=== PATIENT | female | born 1990 | race African-American/Black ===

== ENCOUNTER 2016-03-07 17:14 | Emergency (ER) | payer MEDICARE ==
[2016-03-07] MEDS ORDERED: Ondansetron HCl/PF 4 MG/2 ML Vial ONE (18:07)
[2016-03-07] MEDS ORDERED: Famotidine 20 MG TAB ONE (18:07)
[2016-03-07] MEDS ORDERED: cefTRIAXone\\ROCEPHIN 1 GM VIAL ONE (18:07)
[2016-03-07] MEDS ORDERED: Famotidine In NaCl 20 mg/50 ml Premix Bag ONE (18:08)
[2016-03-07 18:11] LABS: Band 1 % (5-11); Hematocrit 40.3 % (36.0-47.0); Mean Platelet Volume 6.9 fL (7.4-10.4); Neutrophil 87 % (42-75); Red Blood Cell (RBC) Count 4.35 mill/uL (4.20-5.40); White Blood Cell (WBC) Count 20.1 thou/uL (4.8-10.8)
[2016-03-07 18:19] LABS: ALT (SGPT) 29 U/L (0-55); AST (SGOT) 23 U/L (5-34); Alkaline Phosphatase 68 U/L (40-150); Anion Gap 18 mmol/L (10-20); BUN (Urea Nitrogen) 12 mg/dL (7.0-18.7); Bilirubin, Total 0.8 mg/dL (0.2-1.2); Calc. Creatinine Clearance 0 mL/min (70-130); Calcium 9.6 mg/dL (7.8-10.44); Carbon Dioxide 23 mmol/L (22-29); Chloride 102 mmol/L (98-107); Estimated GFR-MDRD Greater than 90; Globulin 3.6 g/dL (2.4-3.5); Lipase 25 U/L (8-78); Protein, Total 8.1 g/dL (6.0-8.3)
[2016-03-07 18:52] LABS: Methamphetamine Not Detected (NotDetected)
[2016-03-07 18:53] LABS: Methadone Not Detected (NotDetected); Nitrite Negative (Negative)
[2016-03-07] MEDS ORDERED: Potassium Chloride 20 MEQ TAB ONE (18:53)
[2016-03-07 18:54] LABS: Glucose, Urine (Dipstick) Negative (Negative); Ketone, Urine 40 mg/dL (Negative); Protein, Urine (Dipstick) 30 mg/dL (Neg-Trace)
[2016-03-07 18:55] LABS: Bilirubin Negative (Negative); Blood, Urine Trace (Negative)
[2016-03-07 18:57] LABS: RBC/HPF None Seen HPF (0-3)
[2016-03-07 18:58] LABS: Bacteria/HPF 2+ HPF (None Seen); Hyaline Casts/LPF NONE SEEN LPF (0-3 Hyaline); Oval Fat Bodies/HPF None Seen HPF (None Seen); Renal Epithelial None Seen HPF (0-3); Sperm/HPF None Seen HPF (None Seen); Transitional Epithelial NONE SEEN HPF (0-3); Trichomonas/HPF None Seen HPF (None Seen); Yeast-All Forms None Seen HPF (None Seen)
--- NOTE | 2016-03-07 20:17 | ERRECORD ---
[facility] EMERGENCY RECORD HPI COUGH (17:42 JPIP) CHIEF COMPLAINT: Patient presents for evaluation of cough, non-productive. HISTORIAN: History provided by patient. LOCATION: No localizing symptoms. TIME COURSE: Sudden onset of symptoms, Date and time of onset was yesterday, There has been no change in the patient's symptoms over time, are constant. ASSOCIATED WITH: Associated with chills, No associated diarrhea, Associated with nausea, Associated with upper respiratory infection, vomiting all night long". EXACERBATED BY: Patient's condition exacerbated by nothing. RELIEVED BY: Patient's condition relieved by nothing, Patient's condition relieved by nothing because patient has not tried anything for relief. ROS (17:43 JPIP) CONSTITUTIONAL: Historian reports chills, reports fatigue, denies lethargy, reports malaise. EYES: Historian denies eye pain, denies eye redness. ENT: Historian denies dysphagia, denies sinus pain, denies sore throat. CARDIOVASCULAR: Historian denies chest pain. RESPIRATORY: Historian reports cough, denies shortness of breath, denies sputum, denies stridor, denies wheezing. GI: Historian denies diarrhea, reports hematemesis, reports nausea, reports vomiting. GENITOURINARY FEMALE: Historian denies dysuria, denies frequency, denies hematuria, denies , denies urgency. SKIN: Historian reports skin lesions, states she has an abscess in her left axilla. NEUROLOGIC: Historian denies dizziness, denies headache, denies lethargy, denies mental status changes. NOTES: All systems reviewed, negative except as described above. PAST MEDICAL HISTORY MEDICAL HISTORY: Flu vaccine not up to date, Tetanus not up to date, Pneumococcal vaccine not up to date, Notes: hx of depression and bipolar, Flu vaccine not up to date, Tetanus immunization up to date. No past medical history, Flu vaccine not up to date, Tetanus not up to date, Pneumococcal vaccine not up to date.03/07/16. (18:37 ERUI) FEMALE SURGICAL HISTORY: Surgical history of appendectomy, Patient has no surgical history. Surgical history of section.03/07/16. (18:37 ERUI) PSYCHIATRIC HISTORY: Psychiatric history includes, bipolar disorder, depression. No previous psychiatric history.03/07/16. (18:37 ERUI) SOCIAL HISTORY: Patient denies alcohol use, Patient currently uses drugs, abuses marijuana, Patient has no smoking history. (18:37 ERUI) &a-1R&a+25V*p+0X*f4827Z*c202B*c15G*c2P*p-0X&a-25V&a+1R Name: Mary Mcginnis : 1990 F26 MedRec: [id number] AcctNum: [id number] Prepared: Bear Mar 07, 2016 19:44 by Interface Page 1 of 4 pMD [facility] EMERGENCY RECORD FAMILY HISTORY: No known family hisotry. (18:37 ERUI) NOTES: Nursing records reviewed, Medication list reviewed. (17:47 JPIP) KNOWN ALLERGIES No Known Drug Allergies CURRENT MEDICATIONS LaMICtal: TABLET : Strength - 100 mg : ORAL Patient Dose: Unknown. (18:37 ERUI) Zoloft: TABLET : Strength - 50 mg : ORAL Patient Dose: 1 tab(s) Oral once a day. (18:38 ERUI) VITAL SIGNS VITAL SIGNS: BP: 134/89, Pulse: 135, Resp: 20, Temp: 99.7 (Oral), Pain: 5, O2 sat: 99 on Room Air, Time: 03/07/2016 17:30. (17:30 AHOO) BP: 124/101, Pulse: 109, Resp: 20, Pain: 5, O2 sat: 98 on Room Air, Time: 03/07/2016 18:30. (18:30 AHOO) BP: 152/89, Pulse: 120, Resp: 18 (Non-Labored), Temp: 99.1 (Oral), Pain: 0, O2 sat: 100 on Room Air, Time: 03/07/2016 19:22. (19:22 WJAN) PHYSICAL EXAM (17:44 JPIP) CONSTITUTIONAL: Vital Signs Reviewed, Patient afebrile, Pulse, tachycardic, Blood pressure normal, Respiratory rate normal, Normal pulse oximetry, Patient appears, in mild pain distress, Patient alert and oriented to person, place and time, Nursing notes reviewed, patient agitated, diaphoretic, +jerky movements. HEAD: Head exam included findings of head atraumatic, normocephalic. EYES: Eye exam included findings of eyelids normal to inspection, Conjunctiva normal, Sclera normal, no periorbital ecchymosis, no periorbital edema, no periorbital erythema. ENT: Ear exam normal, external ear normal, tympanic membranes normal, no foreign body, no drainage, no bleeding, Pharynx exam normal, not injected, no swelling, symmetrical, Uvula exam normal, midline, no edema, Mouth exam normal, mucous membranes moist. NECK: Neck exam included findings of normal range of motion, Trachea midline, no cervical adenopathy, no tenderness. RESPIRATORY CHEST: Respiratory exam included findings of no respiratory distress, Breath sounds clear, No wheezing, No rales, No rhonchi, Breath sounds not absent, Breath sounds not diminished. CARDIOVASCULAR: Cardiovascular exam included findings of, rate tachycardic, rhythm regular, Heart sounds normal, no murmurs, no rub. ABDOMEN FEMALE: Abdominal exam included findings of abdomen tender, to the epigastric region, mild intensity, Bowel sounds, hypoactive, Liver &a-1R&a+25V*p+0X*p6195I*c202B*c15G*c2P*p-0X&a-25V&a+1R Name: Mary Mcginnis : 1990 F26 MedRec: [id number] AcctNum: [id number] Prepared: Bear Mar 07, 2016 19:44 by Interface Page 2 of 4 pMD [facility] EMERGENCY RECORD normal, Spleen normal, no distension, no mass, no pulsatile masses, no peritoneal signs, no rigidity, no guarding, no rebound. BACK: no costovertebral angle tenderness. UPPER EXTREMITY: Upper extremity exam included findings of inspection abnormal, Range of motion normal, open draining abscess in left axilla. large purulent DC. NEURO: Vidor coma scale 15, Neuro exam findings include patient oriented to person, place and time, Speech, pressured, no focal motor deficits. SKIN: Skin exam included findings of skin warm, dry, and normal in color, open draining abscess in left axilla. LYMPHATIC: Lymphatic exam included findings of cervical nodes normal, Submandibular normal. PSYCHIATRIC: Psychiatric exam included findings of patient oriented to person place and time, Affect, agitated, anxious. MEDICATION ADMINISTRATION SUMMARY Drug Name: K-Dur, Dose Ordered: 40 mEq, Route: Oral, Status: Given, Time: 18:55 03/07/2016, Drug Name: Rocephin injection, Dose Ordered: 2 g, Route: IV Piggy Back, Status: Given, Time: 18:47 03/07/2016, Drug Name: famotidine (PF)-NaCl (iso-os), Dose Ordered: 20 mg, Route: IV Piggy Back, Status: Given, Time: 18:11 03/07/2016, Drug Name: Zofran intravenous, Dose Ordered: 4 mg, Route: IV Push, Status: Given, Time: 18:09 03/07/2016, Drug Name: Normal Saline, Dose Ordered: 1000 mL/hr, Route: IV Fluid Infusion, Status: Given, Time: 18:07 03/07/2016, Detailed record available in Medication Service section. DOCTOR NOTES RE-EVALUATION: Routine re-evaluation, after administration of analgesics, Routine re-evaluation, after administration of IV fluids, The patient's condition has improved. (19:06 JPIP) TEXT: Patient has had no emesis in since arrival in the ED. Cough is less than it was when she first arrived. (18:33 JPIP) Leukocytosis most likely due to three issues, her cutaneous abscess, her UTI and URI. (19:06 JPIP) advised to follow up with her PCP for evaluation and treatment of her HTN. (19:10 JPIP) PROBLEM LIST No recorded problems DIAGNOSIS (19:09 JPIP) FINAL: PRIMARY: Nausea with vomiting, ADDITIONAL: axillary abscess, Hypokalemia, upper respiratory infection, UTI. &a-1R&a+25V*p+0X*z6868Z*c202B*c15G*c2P*p-0X&a-25V&a+1R Name: Mary Mcginnis : 1990 F26 MedRec: [id number] AcctNum: [id number] Prepared: Bear Mar 07, 2016 19:44 by Interface Page 3 of 4 pMD [facility] EMERGENCY RECORD PRESCRIPTION promethazine-DM: SYRUP : : ORAL : Quantity: 5 Unit: mL Route: ORAL Schedule: every 8 hours PRN Dispense: 120 ml May substitute. Refills: No Refills . (18:51 JPIP) NOTES: for cough No refills. (18:51 JPIP) Zofran ODT: TABLET, RAPID DISSOLVE : 4 mg : ORAL : Quantity: 1 Unit: tab(s) Route: ORAL Schedule: every 6 hours PRN Dispense: 10 May substitute. Refills: No Refills . (18:51 JPIP) NOTES: for nausea No refills. (18:51 JPIP) Septra DS: TABLET : 800 mg-160 mg : ORAL : Quantity: 1 Unit: tab(s) Route: ORAL Schedule: 2 times a day Dispense: 20 May substitute. Refills: No Refills . (19:03 JPIP) NOTES: No refills. (19:03 JPIP) DISPOSITION PATIENT: Disposition Type: Discharge, Disposition: *Discharge Home, Condition: Good. (19:09 JPIP) Patient left the department. (19:35 WJAN) Barnett: AHOO=SUSY Louie, May ERUI=DONNIE Swan, Yamila JPIP=DO Ro Joseph WMAXX=DONNIE [place], Shea &a-1R&a+25V*p+0X*y1204J*c202B*c15G*c2P*p-0X&a-25V&a+1R Name: Mary Mcginnis : 1990 F26 MedRec: [id number] AcctNum: [id number] Prepared: Bear Mar 07, 2016 19:44 by Interface Page 4 of 4 pMD MTDD
--- NOTE | 2016-03-07 20:28 | PICIS ---
[facility] EMERGENCY RECORD TRIAGE (17:29 ERUI) TRIAGE NOTES: C/O OF COUGHING, VOMITING BLOOD, HEART RACING S/S ONSET LAST NIGHT. (17:29 ERUI) PATIENT: NAME: Mary Mcginnis, AGE: 26, GENDER: female, : Sat 1990, TIME OF GREET: Tue Mar 07, 2016 17:14, PREFERRED LANGUAGE: Andorran, ETHNICITY: Not or , ECODE BILLING MAP: [facility], SSN: [id number], Zip Code: [address], KG WEIGHT: 77.11, PHONE: , , , PERSON ID: [id number], PAYMENT: [employer] Medicare, PCP: NONE. (17:29 ERUI) COMPLAINT: COUGH, VOMITING. (17:29 ERUI) ADMISSION: URGENCY: 3 Urgent, ADMISSION SOURCE: Home, TRANSPORT: Ambulance- [facility], BED: TRIAGE. (17:29 ERUI) SIRS SCORING: Heart Rate 55-109 (0), respiratory rate 12-24 (0), Mental Status altered: no (0). (18:37 ERUI) TRIAGE SCREENING: Patient denies suicidal ideation, Patient denies presence of domestic violence. (18:37 ERUI) LMP: Last menstrual period: 02/12/2016. (18:37 ERUI) TREATMENTS IN PROGRESS: Treatments given Prehospital: none. (18:37 ERUI) PROVIDERS: TRIAGE NURSE: Yamila Swan RN. (17:29 ERUI) PREVIOUS VISIT ALLERGIES: No Known Drug Allergies. (17:29 ERUI) No Known Drug Allergies. (18:37 ERUI) KNOWN ALLERGIES No Known Drug Allergies CURRENT MEDICATIONS LaMICtal: TABLET : Strength - 100 mg : ORAL Patient Dose: Unknown. (18:37 ERUI) Zoloft: TABLET : Strength - 50 mg : ORAL Patient Dose: 1 tab(s) Oral once a day. (18:38 ERUI) VITAL SIGNS VITAL SIGNS: BP: 134/89, Pulse: 135, Resp: 20, Temp: 99.7 (Oral), Pain: 5, O2 sat: 99 on Room Air, Time: 03/07/2016 17:30. (17:30 AHOO) BP: 124/101, Pulse: 109, Resp: 20, Pain: 5, O2 sat: 98 on Room Air, Time: 03/07/2016 18:30. (18:30 AHOO) BP: 152/89, Pulse: 120, Resp: 18 (Non-Labored), Temp: 99.1 (Oral), Pain: 0, O2 sat: 100 on Room Air, Time: 03/07/2016 19:22. (19:22 WJAN) NURSING ASSESSMENT: ABDOMEN (18:38 ERUI) CONSTITUTIONAL: Patient arrives ambulatory, Gait steady, History obtained from patient, Patient appears comfortable, Patient cooperative, Patient alert, Oriented to person, place and time, Skin warm, Skin dry, Patient complains of vomiting blood. PAIN: Patient rates pain as 0 out of 10. ABDOMEN: Abdomen assessment findings include abdomen symmetrical, &a-1R&a+25V*p+0X*j7264J*c202B*c15G*c2P*p-0X&a-25V&a+1R Name: Mary Mcginnis : 1990 F26 MedRec: [id number] AcctNum: [id number] Prepared: Bear Mar 07, 2016 19:50 by Interface Page 1 of 13 pMD [facility] EMERGENCY RECORD Abdomen soft, non-tender, Associated with vomiting, history of vomiting, having coffee ground emesis, states vomits when she coughs, no associated diarrhea, no associated constipation, Date of last bowel movement: today. GENITOURINARY FEMALE: no associated urinary complaints. SAFETY: Side rails up, Cart/Stretcher in lowest position, Call light within reach, Hospital ID band on. NURSING PROCEDURE: DISCHARGE NOTE (19:23 WJAN) DISCHARGE: Patient discharged to home, ambulating without assistance, driving self, unaccompanied, Summary of Care printed/ provided, Patient requested and was provided an electronic copy of Discharge Instructions, Transition record given to patient, Discharge instructions given to patient, Simple or moderate discharge teaching performed, by Shea RN, Prescriptions given and instructions on side effects given, Medication reconciliation form given, Above person(s) verbalized understanding of discharge instructions and follow-up care, Notes: Patient instructed to follow up with PCP. Patient instructed to follow medication instructions. Patient instructed to follow discharge teaching. BELONGINGS: Belongings remain with patient, Valuables remain with patient. SAFETY: Side rails up, Cart/Stretcher in lowest position, Call light within reach, Hospital ID band on. NURSING PROCEDURE: IV PATIENT IDENITIFIER: Patient actively involved in identification process, Patient's identity verified by patient stating name, Patient's identity verified by patient stating date, Patient's identity verified by hospital ID bracelet. (17:49 AHOO) IV SITE 1: IV therapy indicated for medication administration, IV established, to the left antecubital, using a 20 gauge catheter, in one attempt, Saline lock established, Flushed with normal saline (mls): 10ML, Labs drawn at time of placement, labeled in the presence of the patient and sent to lab. (17:49 AHOO) FOLLOW-UP SITE 1: After procedure, 2x2 dressing applied, IV discontinued, due to patient being discharged, catheter intact, Notes: IV DC'd, bleeding controlled with 2x2 and paper tape. (19:20 WJAN) ORDER DETAILS Order Name: CBC with Differential, Status: Active, Time: 17:33 03/07/2016, User: LEENA, - Ordered for: DO Ro Joseph, - Entered by: DO Ro Joseph - Bear Mar 07, 2016 17:33, - Quantity: 1, Order Name: Comprehensive Metabolic Panel, Status: Active, Time: 17:33 03/07/2016, User: LEENA, - Ordered for: DO Ro Joseph, &a-1R&a+25V*p+0X*b7131D*c202B*c15G*c2P*p-0X&a-25V&a+1R Name: Mary Mcginnis : 1990 F26 MedRec: [id number] AcctNum: [id number] Prepared: SunMar 07, 2016 19:50 by Interface Page 2 of 13 D [facility] EMERGENCY RECORD - Entered by: DO oR Joseph - Bear Mar 07, 2016 17:33, - Quantity: 1, Order Name: Culture, Urine, Status: Active, Time: 19:03 03/07/2016, User: LEENA, - Ordered for: DO Ro Joseph, - Entered by: DO Ro Joseph - Tue Mar 07, 2016 19:03, - Quantity: 1, Order Name: Drug Screen, Urine, Status: Active, Time: 17:35 03/07/2016, User: LEENA, - Ordered for: DO Ro Joseph, - Entered by: DO Ro Joseph - Tue Mar 07, 2016 17:35, - Quantity: 1, Order Name: Lipase, Status: Active, Time: 17:33 03/07/2016, User: LEENA, - Ordered for: DO Ro Joseph, - Entered by: DO Ro Joseph - Tue Mar 07, 2016 17:33, - Quantity: 1, Order Name: Test, Serum (BHCG), Status: Active, Time: 17:33 03/07/2016, User: LEENA, - Ordered for: DO Ro Joseph, - Entered by: DO Ro Joseph - Tue Mar 07, 2016 17:33, - Quantity: 1, Order Name: SALINE LOCK, Status: Done, Time: 17:49 03/07/2016, User: CHRISTINE, - Ordered for: DO Ro Joseph, - Entered by: DO Ro Joseph - Tue Mar 07, 2016 17:34, - Quantity: 1, Order Name: Urinalysis w/ Rflx Microscopic, Status: Active, Time: 17:33 03/07/2016, User: LEENA, - Ordered for: DO Ro Joseph, - Entered by: DO Ro Joseph - Tue Mar 07, 2016 17:33, - Quantity: 1. MEDICATION ADMINISTRATION SUMMARY Drug Name: K-Dur, Dose Ordered: 40 mEq, Route: Oral, Status: Given, Time: 18:55 03/07/2016, Drug Name: Rocephin injection, Dose Ordered: 2 g, Route: IV Piggy Back, Status: Given, Time: 18:47 03/07/2016, Drug Name: famotidine (PF)-NaCl (iso-os), Dose Ordered: 20 mg, Route: IV Piggy Back, Status: Given, Time: 18:11 03/07/2016, Drug Name: Zofran intravenous, Dose Ordered: 4 mg, Route: IV Push, Status: Given, Time: 18:09 03/07/2016, Drug Name: Normal Saline, Dose Ordered: 1000 mL/hr, Route: IV Fluid Infusion, Status: Given, Time: 18:07 03/07/2016, Detailed record available in Medication Service section. MEDICATION SERVICE famotidine (PF)-NaCl (iso-os): Order: famotidine (PF)-NaCl (iso-os) (famotidine/sodium chloride, iso-osmotic/preservative free) &a-1R&a+25V*p+0X*v5309N*c202B*c15G*c2P*p-0X&a-25V&a+1R Name: Mary Mcginnis : 1990 F26 MedRec: [id number] AcctNum: [id number] Prepared: SunMar 07, 2016 19:50 by Interface Page 3 of 13 pMD [facility] EMERGENCY RECORD - Dose: 20 mg : IV Piggy Back Schedule: Now Ordered by: Hernandez Ro DO Entered by: Hernandez Ro DO SunMar 07, 2016 17:34 , Acknowledged by: Rachael Louie LVN SunMar 07, 2016 18:04 Documented as given by: Rachael Louie LVN SunMar 07, 2016 18:11 Patient, Medication, Dose, Route and Time verified prior to administration. Amount given: 20MG, IV SITE #1 IVPB or drip, Catheter placement confirmed via flush prior to administration, IV site without signs or symptoms of infiltration during medication administration, No swelling during administration, No drainage during administration, IV flushed after administration, Correct patient, time, route, dose and medication confirmed prior to administration, Patient advised of actions and side-effects prior to administration, Allergies confirmed and medications reviewed prior to administration, Patient in position of comfort, Side rails up, Cart in lowest position, Family at bedside. : Follow Up : Response assessment performed, No signs or symptoms of allergic reaction noted, _IV SITE #1:_, Medication infusion discontinued, on SunMar 07, 2016 19:00, 50 minutes, ., Total amount infused: 20MG. (19:20 ERUI) K-Dur: Order: K-Dur (potassium chloride) - Dose: 40 mEq : Oral Schedule: Now Ordered by: Hernandez Ro DO Entered by: Hernandez Ro DO SunMar 07, 2016 18:43 , Acknowledged by: Justino Perdue RN SunMar 07, 2016 18:55 Documented as given by: Justino Perdue RN SunMar 07, 2016 18:55 Patient, Medication, Dose, Route and Time verified prior to administration. Amount given: 40 mEq, Site: Medication administered P.O., Patient appears Awake and alert- acceptable, Correct patient, time, route, dose and medication confirmed prior to administration, Patient advised of actions and side-effects prior to administration, Allergies confirmed and medications reviewed prior to administration, Patient in position of comfort, Side rails up, Cart in lowest position, Family at bedside. : Follow Up : Response assessment performed, No signs or symptoms of allergic reaction noted. (19:29 ERUI) Normal Saline: Order: Normal Saline (0.9 % sodium chloride) - Dose: 1000 mL/hr : IV Fluid Infusion Schedule: Now Ordered by: Hernandez Ro DO Entered by: Hernandez Ro DO Mar 07, 2016 17:34 , Acknowledged by: Rachael Louie LVN tyrone Mar 07, 2016 18:04 Documented as given by: Rachael Louie LVN tyrone Mar 07, 2016 18:07 Patient, Medication, Dose, Route and Time verified prior to administration. Amount given: 1 L, IV SITE #1 IV fluids established for hydration, &a-1R&a+25V*p+0X*f1626Y*c202B*c15G*c2P*p-0X&a-25V&a+1R Name: Mary Mcginnis : 1990 F26 MedRec: [id number] AcctNum: [id number] Prepared: SunMar 07, 2016 19:50 by Interface Page 4 of 13 pMD [facility] EMERGENCY RECORD IV SITE #1 into left antecubital, IV SITE #1 1st bag hung, IV SITE #1 bolus of 1000 ml established, via gravity tubing, Awake and alert- acceptable, Catheter placement confirmed via flush prior to administration, IV site without signs or symptoms of infiltration during medication administration, No swelling during administration, No drainage during administration, IV flushed after administration, Correct patient, time, route, dose and medication confirmed prior to administration, Patient advised of actions and side-effects prior to administration, Allergies confirmed and medications reviewed prior to administration, Patient in position of comfort, Side rails up, Cart in lowest position, Family at bedside. : Follow Up : Response assessment performed, No signs or symptoms of allergic reaction noted, _IV SITE #1:_, Medication infusion discontinued, on SunMar 07, 2016 19:29, Total infusion time IV site 1 1 hour, 25 minutes, ., Total amount infused: 1000ML. (19:20 ERUI) Rocephin injection: Order: Rocephin injection (ceftriaxone sodium) - Dose: 2 g : IV Piggy Back Schedule: Now Ordered by: Hernandez Ro DO Entered by: Hernandez Ro DO SunMar 07, 2016 17:35 , Acknowledged by: Rachael Louie LVN SunMar 07, 2016 18:04. : Follow Up : Response assessment performed, No signs or symptoms of allergic reaction noted, _IV SITE #1:_, Medication infusion discontinued, on SunMar 07, 2016 19:20, 35 minutes, ., Total amount infused: 100ML. (19:29 ERUI) Rocephin injection: Order: Rocephin injection (ceftriaxone sodium) - Dose: 2 g : IV Piggy Back Schedule: Now Ordered by: Hernandez Ro DO Entered by: Hernandez Ro DO SunMar 07, 2016 17:35 , Acknowledged by: Rachael Louie LVN SunMar 07, 2016 18:04 Documented as given by: Yamila Swan RN SunMar 07, 2016 18:47 Patient, Medication, Dose, Route and Time verified prior to administration. Amount given: 2grams, IV SITE #1 IVPB or drip, initial infusion, IVPB mixed in: 100ml, Fluid: 0.9NS, via primary tubing, via pump tubing, on an IV pump, Catheter placement confirmed via flush prior to administration, IV site without signs or symptoms of infiltration during medication administration, No swelling during administration, No drainage during administration, IV flushed after administration, Correct patient, time, route, dose and medication confirmed prior to administration, Patient advised of actions and side-effects prior to administration, Allergies confirmed and medications reviewed prior to administration, Patient in position of comfort, Side rails up, Cart in lowest position. Zofran intravenous: Order: Zofran intravenous (ondansetron HCl) - Dose: 4 mg : IV Push Schedule: Now Ordered by: Hernandez Ro DO &a-1R&a+25V*p+0X*t1054M*c202B*c15G*c2P*p-0X&a-25V&a+1R Name: Mary Mcginnis : 1990 F26 MedRec: [id number] AcctNum: [id number] Prepared: SunMar 07, 2016 19:50 by Interface Page 5 of 13 pMD [facility] EMERGENCY RECORD Entered by: Hernandez Ro DO SunMar 07, 2016 17:34 , Acknowledged by: Rachael Louie LVN SunMar 07, 2016 18:04 Documented as given by: Rachael Louie LVN SunMar 07, 2016 18:09 Patient, Medication, Dose, Route and Time verified prior to administration. Amount given: 4 MG, IV SITE #1 IVP, initial medication, Slowly, Awake and alert- acceptable, Catheter placement confirmed via flush prior to administration, IV site without signs or symptoms of infiltration during medication administration, No swelling during administration, No drainage during administration, IV flushed after administration, Correct patient, time, route, dose and medication confirmed prior to administration, Patient advised of actions and side-effects prior to administration, Allergies confirmed and medications reviewed prior to administration, Patient in position of comfort, Side rails up, Cart in lowest position, Family at bedside. : Follow Up : Response assessment performed, No signs or symptoms of allergic reaction noted, _IV SITE #1:_. (19:20 ERUI) HPI COUGH (17:42 JPIP) CHIEF COMPLAINT: Patient presents for evaluation of cough, non-productive. HISTORIAN: History provided by patient. LOCATION: No localizing symptoms. TIME COURSE: Sudden onset of symptoms, Date and time of onset was yesterday, There has been no change in the patient's symptoms over time, are constant. ASSOCIATED WITH: Associated with chills, No associated diarrhea, Associated with nausea, Associated with upper respiratory infection, vomiting all night long". EXACERBATED BY: Patient's condition exacerbated by nothing. RELIEVED BY: Patient's condition relieved by nothing, Patient's condition relieved by nothing because patient has not tried anything for relief. ROS (17:43 JPIP) CONSTITUTIONAL: Historian reports chills, reports fatigue, denies lethargy, reports malaise. EYES: Historian denies eye pain, denies eye redness. ENT: Historian denies dysphagia, denies sinus pain, denies sore throat. CARDIOVASCULAR: Historian denies chest pain. RESPIRATORY: Historian reports cough, denies shortness of breath, denies sputum, denies stridor, denies wheezing. GI: Historian denies diarrhea, reports hematemesis, reports nausea, reports vomiting. GENITOURINARY FEMALE: Historian denies dysuria, denies frequency, denies hematuria, denies , denies urgency. SKIN: Historian reports skin lesions, states she has an abscess in her left axilla. NEUROLOGIC: Historian denies dizziness, denies headache, denies lethargy, denies mental status changes. &a-1R&a+25V*p+0X*b3297L*c202B*c15G*c2P*p-0X&a-25V&a+1R Name: Mary Mcginnis : 1990 F26 MedRec: [id number] AcctNum: [id number] Prepared: Bear Mar 07, 2016 19:50 by Interface Page 6 of 13 pMD [facility] EMERGENCY RECORD NOTES: All systems reviewed, negative except as described above. PAST MEDICAL HISTORY MEDICAL HISTORY: Flu vaccine not up to date, Tetanus not up to date, Pneumococcal vaccine not up to date, Notes: hx of depression and bipolar, Flu vaccine not up to date, Tetanus immunization up to date. No past medical history, Flu vaccine not up to date, Tetanus not up to date, Pneumococcal vaccine not up to date.03/07/16. (18:37 ERUI) FEMALE SURGICAL HISTORY: Surgical history of appendectomy, Patient has no surgical history. Surgical history of section.03/07/16. (18:37 ERUI) PSYCHIATRIC HISTORY: Psychiatric history includes, bipolar disorder, depression. No previous psychiatric history.03/07/16. (18:37 ERUI) SOCIAL HISTORY: Patient denies alcohol use, Patient currently uses drugs, abuses marijuana, Patient has no smoking history. (18:37 ERUI) FAMILY HISTORY: No known family hisotry. (18:37 ERUI) NOTES: Nursing records reviewed, Medication list reviewed. (17:47 JPIP) PHYSICAL EXAM (17:44 JPIP) CONSTITUTIONAL: Vital Signs Reviewed, Patient afebrile, Pulse, tachycardic, Blood pressure normal, Respiratory rate normal, Normal pulse oximetry, Patient appears, in mild pain distress, Patient alert and oriented to person, place and time, Nursing notes reviewed, patient agitated, diaphoretic, +jerky movements. HEAD: Head exam included findings of head atraumatic, normocephalic. EYES: Eye exam included findings of eyelids normal to inspection, Conjunctiva normal, Sclera normal, no periorbital ecchymosis, no periorbital edema, no periorbital erythema. ENT: Ear exam normal, external ear normal, tympanic membranes normal, no foreign body, no drainage, no bleeding, Pharynx exam normal, not injected, no swelling, symmetrical, Uvula exam normal, midline, no edema, Mouth exam normal, mucous membranes moist. NECK: Neck exam included findings of normal range of motion, Trachea midline, no cervical adenopathy, no tenderness. RESPIRATORY CHEST: Respiratory exam included findings of no respiratory distress, Breath sounds clear, No wheezing, No rales, No rhonchi, Breath sounds not absent, Breath sounds not diminished. CARDIOVASCULAR: Cardiovascular exam included findings of, rate tachycardic, rhythm regular, Heart sounds normal, no murmurs, no rub. ABDOMEN FEMALE: Abdominal exam included findings of abdomen tender, to the epigastric region, mild intensity, Bowel sounds, hypoactive, Liver normal, Spleen normal, no distension, no mass, no pulsatile masses, &a-1R&a+25V*p+0X*e2884X*c202B*c15G*c2P*p-0X&a-25V&a+1R Name: Mary Mcginnis : 1990 F26 MedRec: [id number] AcctNum: [id number] Prepared: Bear Mar 07, 2016 19:50 by Interface Page 7 of 13 pMD [facility] EMERGENCY RECORD no peritoneal signs, no rigidity, no guarding, no rebound. BACK: no costovertebral angle tenderness. UPPER EXTREMITY: Upper extremity exam included findings of inspection abnormal, Range of motion normal, open draining abscess in left axilla. large purulent DC. NEURO: West coma scale 15, Neuro exam findings include patient oriented to person, place and time, Speech, pressured, no focal motor deficits. SKIN: Skin exam included findings of skin warm, dry, and normal in color, open draining abscess in left axilla. LYMPHATIC: Lymphatic exam included findings of cervical nodes normal, Submandibular normal. PSYCHIATRIC: Psychiatric exam included findings of patient oriented to person place and time, Affect, agitated, anxious. LAB INTERPRETATION (19:05 JPIP) INTERPRETATION: I reviewed the lab results, All labs normal except as noted below, CBC abnormal, White blood cell count elevated, Neutrophils elevated, Chemistry abnormal, Potassium decreased, Glucose elevated, Liver functions normal, Lipase normal, Urinalysis abnormal, positive for leukocytes, positive for bacteria, positive for ketones, Urine HCG negative. EVENTS TRANSFER: Triage to Emergency Triage. (SunMar 07, 2016 17:29 ERUI) Emergency Triage to Emergency Room -03. (17:32 AHOO) Emergency Emergency Room -03 to Waiting. (19:29 JPIP) Removed from Emergency Waiting. (19:35 WJAN) O2SAT INTERPRETATION (17:35 JPIP) O2SAT: Continuous pulse oximetry, Oxygen saturation 99%, on room air, Oxygen saturation interpretation: Normal, No intervention required. DOCTOR NOTES RE-EVALUATION: Routine re-evaluation, after administration of analgesics, Routine re-evaluation, after administration of IV fluids, The patient's condition has improved. (19:06 JPIP) TEXT: Patient has had no emesis in since arrival in the ED. Cough is less than it was when she first arrived. (18:33 JPIP) Leukocytosis most likely due to three issues, her cutaneous abscess, her UTI and URI. (19:06 JPIP) advised to follow up with her PCP for evaluation and treatment of her HTN. (19:10 JPIP) PROBLEM LIST No recorded problems &a-1R&a+25V*p+0X*q8905Z*c202B*c15G*c2P*p-0X&a-25V&a+1R Name: Mary Mcginnis : 1990 F26 MedRec: [id number] AcctNum: [id number] Prepared: SunMar 07, 2016 19:50 by Interface Page 8 of 13 pMD [facility] EMERGENCY RECORD DIAGNOSIS (19:09 JPIP) FINAL: PRIMARY: Nausea with vomiting, ADDITIONAL: axillary abscess, Hypokalemia, upper respiratory infection, UTI. DISPOSITION PATIENT: Disposition Type: Discharge, Disposition: *Discharge Home, Condition: Good. (19:09 JPIP) Patient left the department. (19:35 WJAN) INSTRUCTION (19:08 JPIP) DISCHARGE: ABSCESS, ABX ONLY, UPPER RESP INFECTION ANTIBIOTIC TREATMENT ADULT, UTI CYSTITIS FEMALE ADULT, NAUSEA VOMITING 6YADULT. SPECIAL: Finish all your antibiotics Follow up with Primary Care Physician within 72 hours Return to the Emergency Department for increased symptoms problems or concerns Take acetaminophen or ibuprofen for pain. PRESCRIPTION promethazine-DM: SYRUP : : ORAL : Quantity: 5 Unit: mL Route: ORAL Schedule: every 8 hours PRN Dispense: 120 ml May substitute. Refills: No Refills . (18:51 JPIP) NOTES: for cough No refills. (18:51 JPIP) Zofran ODT: TABLET, RAPID DISSOLVE : 4 mg : ORAL : Quantity: 1 Unit: tab(s) Route: ORAL Schedule: every 6 hours PRN Dispense: 10 May substitute. Refills: No Refills . (18:51 JPIP) NOTES: for nausea No refills. (18:51 JPIP) Septra DS: TABLET : 800 mg-160 mg : ORAL : Quantity: 1 Unit: tab(s) Route: ORAL Schedule: 2 times a day Dispense: 20 May substitute. Refills: No Refills . (19:03 JPIP) NOTES: No refills. (19:03 JPIP) IMAGING (19:37 WJAN) *SUPPLY CHARGE SHEET: Image captured from scanner. *DISCHARGE INSTRUCTIONS RECEIPT: Image captured from scanner. RESULTS LABORATORY: CBC with Differential Collection DT: SunMar 07, 2016 17:50, *White Blood Cell (WBC) Count 20.1 - H thou/uL, Range (4.8-10.8), Red Blood Cell (RBC) Count 4.35 mill/uL, Range (4.20-5.40), Hemoglobin 13.2 g/dL, Range (12.0-16.0), Hematocrit 40.3 %, Range (36.0-47.0), Mean Corpuscular Volume 92.6 fl, Range (81.0-99.0), &a-1R&a+25V*p+0X*q1787Q*c202B*c15G*c2P*p-0X&a-25V&a+1R Name: Mary Mcginnis : 1990 F26 MedRec: [id number] AcctNum: [id number] Prepared: SunMar 07, 2016 19:50 by Interface Page 9 of 13 pMD [facility] EMERGENCY RECORD Mean Corpuscular Hemoglobin 30.3 pg, Range (27.0-31.0), Mean Corpuscular HGB CONC 32.7 g/dL, Range (32.0-36.0), RBC Distribution Width 11.8 %, Range (11.5-14.5), Platelet Count 371 thou/uL, Range (130-400), *Mean Platelet Volume 6.9 - L fL, Range (7.4-10.4), *Neutrophil 87 - H %, Range (42-75), *Band 1 - L %, Range (5-11), *Lymphocytes 8 - L %, Range (21-51), Monocytes 3 %, Range (0-10), Eosinophils 1 %, Range (0-10), Small Platelets SLIGHT . (18:12 JPIP) Test, Serum (BHCG) Collection DT: SunMar 07, 2016 17:50, BHCG - Serum NEGATIVE , Range (NEGATIVE), Method of sensitivity- Indeterminant: results should be repeated, after 48 hours. Positive: results may be detected as early as 4-5 days before a first missed menses. Elimination of BHCG-, Elimination following first trimester D&C: 29-44 Days , Elimination following term : 8-24 Days . (18:12 JPIP) Lipase Collection DT: SunMar 07, 2016 17:50, Lipase 25 U/L, Range (8-78). (18:25 JPIP) Comprehensive Metabolic Panel Collection DT: SunMar 07, 2016 17:50, Sodium 140 mmol/L, Range (136-145), Chloride 102 mmol/L, Range (98-107), Carbon Dioxide 23 mmol/L, Range (22-29), Anion Gap 18 mmol/L, Range (10-20), BUN (Urea Nitrogen) 12 mg/dL, Range (7.0-18.7), Creatinine 0.86 mg/dL, Range (0.6-1.1), Estimated GFR-MDRD Greater than 90 , Reference Range for Estimated GFR: Greater than 90, mL/min/1.73 m2 NOTE: The MDRD equation has not been validated for use, with the elderly (over 70 years of age), women, patients with, serious comorbid condition or persons with extremes of body size, muscle, mass, or nutritional status. , *Glucose 127 - H mg/dL, Range (70-105), Calcium 9.6 mg/dL, Range (7.8-10.44), Bilirubin, Total 0.8 mg/dL, Range (0.2-1.2), Protein, Total 8.1 g/dL, Range (6.0-8.3), NOTE: Plasma values are generally 0.3 to 0.5 g/dL higher than serum values, due to the presence of fibrinogen. , Albumin 4.5 g/dL, Range (3.5-5.0), *Globulin 3.6 - H g/dL, Range (2.4-3.5), Alb/Glob Ratio 1.3 g/dL, Range (1.2-2.2), Alkaline Phosphatase 68 U/L, Range (40-150), &a-1R&a+25V*p+0X*l6930N*c202B*c15G*c2P*p-0X&a-25V&a+1R Name: Mary Mcginnis : 1990 F26 MedRec: [id number] AcctNum: [id number] Prepared: Bear Mar 07, 2016 19:50 by Interface Page 10 of 13 pMD [facility]GENCY RECORD AST (SGOT) 23 U/L, Range (5-34), ALT (SGPT) 29 U/L, Range (0-55). (18:25 JPIP) Lipase Collection DT: SunMar 07, 2016 17:50, Lipase 25 U/L, Range (8-78). (18:45 JPIP) Comprehensive Metabolic Panel Collection DT: SunMar 07, 2016 17:50, Critical Call Chemistry CALLED TO BRYAN , @[id number] BY XOCHILT , Refer to Critical Value designated by an *L or *H , Sodium 140 mmol/L, Range (136-145), *Potassium 2.7 - *L mmol/L, Range (3.5-5.1), Critical value!, Chloride 102 mmol/L, Range (98-107), Carbon Dioxide 23 mmol/L, Range (22-29), Anion Gap 18 mmol/L, Range (10-20), BUN (Urea Nitrogen) 12 mg/dL, Range (7.0-18.7), Creatinine 0.86 mg/dL, Range (0.6-1.1), Estimated GFR-MDRD Greater than 90 , Reference Range for Estimated GFR: Greater than 90, mL/min/1.73 m2 NOTE: The MDRD equation has not been validated for use, with the elderly (over 70 years of age), women, patients with, serious comorbid condition or persons with extremes of body size, muscle, mass, or nutritional status. , *Glucose 127 - H mg/dL, Range (70-105), Calcium 9.6 mg/dL, Range (7.8-10.44), Bilirubin, Total 0.8 mg/dL, Range (0.2-1.2), Protein, Total 8.1 g/dL, Range (6.0-8.3), NOTE: Plasma values are generally 0.3 to 0.5 g/dL higher than serum values, due to the presence of fibrinogen. , Albumin 4.5 g/dL, Range (3.5-5.0), *Globulin 3.6 - H g/dL, Range (2.4-3.5), Alb/Glob Ratio 1.3 g/dL, Range (1.2-2.2), Alkaline Phosphatase 68 U/L, Range (40-150), AST (SGOT) 23 U/L, Range (5-34), ALT (SGPT) 29 U/L, Range (0-55). (18:45 JPIP) Urine Microscopic Collection DT: SunMar 07, 2016 18:28, RBC/HPF None Seen HPF, Range (0-3), *WBC/HPF 7-10 - H HPF, Range (0-3), *Squamous Epithelial 4-6 - H HPF, Range (0-3), Transitional Epithelial NONE SEEN HPF, Range (0-3), Renal Epithelial None Seen HPF, Range (0-3), *Bacteria/HPF 2+ - H HPF, Range (None Seen), Yeast-All Forms None Seen HPF, Range (None Seen), Trichomonas/HPF None Seen HPF, Range (None Seen), Oval Fat Bodies/HPF None Seen HPF, Range (None Seen), Sperm/HPF None Seen HPF, Range (None Seen), Hyaline Casts/LPF NONE SEEN LPF, Range (0-3 Hyaline). (19:02 JPIP) Urinalysis w/ Rflx Microscopic Collection DT: SunMar 07, 2016 18:28, Color Yellow , Range (Yellow), &a-1R&a+25V*p+0X*g1639Z*c202B*c15G*c2P*p-0X&a-25V&a+1R Name: Mary Mcginnis : 1990 F26 MedRec: [id number] AcctNum: [id number] Prepared: SunMar 07, 2016 19:50 by Interface Page 11 of 13 pMD [facility] EMERGENCY RECORD Clarity Cloudy , Range (Clear), Specific [place], Urine 1.015 , Range (1.005-1.030), pH, Urine 7.0 , Range (5.0-9.0), *Leukocyte Large - H , Range (Negative), Nitrite Negative , Range (Negative), *Protein, Urine (Dipstick) 30 - H mg/dL, Range (Neg-Trace), Glucose, Urine (Dipstick) Negative mg/dL, Range (Negative), *Ketone, Urine 40 - H mg/dL, Range (Negative), Urobilinogen 1.0 mg/dL, Range (0.2-1.0), Bilirubin Negative , Range (Negative), *Blood, Urine Trace - H , Range (Negative). (19:02 JPIP) Drug Screen, Urine Collection DT: Bear Mar 07, 2016 18:28, *THC/Cannabinoid Screen Detected - H , Range (NotDetected), Phencyclidine (PCP) Not Detected , Range (NotDetected), Cocaine Metabolite Screen Not Detected , Range (NotDetected), Methamphetamine Not Detected , Range (NotDetected), Opiate Screen Not Detected , Range (NotDetected), Amphetamine Not Detected , Range (NotDetected), Benzodiazepine Screen Not Detected , Range (NotDetected), Tricyclic Screen Not Detected , Range (NotDetected), Methadone Not Detected , Range (NotDetected), Barbiturates Screen Not Detected , Range (NotDetected), Oxycodone Screen Not Detected , Range (NotDetected), Propoxyphene Screen Not Detected , Range (NotDetected), Drug Screen Cutoff , Range (), The [employer] Profile-V Panel for Qualitative Drugs of Abuse assays are for, presumptive screening testing only. The drug class and detection limits, are as follows: Drug Class Detection Limit Amphetamine , 500 ng/mL* Barbiturates 200 ng/mL , Benzodiazepines 150 ng/mL* Cocaine 150 ng/mL*, Methamphetamine 500 ng/mL* Methadone 200, ng/mL* Opiates 100 ng/mL* Oxycodone , 100 ng/mL PCP 25 ng/mL Propoxyphene , 300 ng/mL Tricyclic Antidepressants 300 ng/mL Cannabinoids (THC) , 50 ng/mL Tests which yield a presumptive positive result must be , tested using a more specific alternate chemical method in order to obtain, a confirmed analytical result. Additional confirmation and identification, may be ordered on a routine basis, if desired. Presumptive positive urines, are held for two weeks. . (19:02 [facility]) &a-1R&a+25V*p+0X*[id number]*c202B*c15G*c2P*p-0X&a-25V&a+1R Name: Kristina Mcginniskandysivan Vicky : 1990 F26 MedRec: [id number] AcctNum: [id number] Prepared: Bear Mar 07, 2016 19:50 by Interface Page 12 of 13 pMD [facility] EMERGENCY RECORD [place]: AHOO=SUSY Louie, May LON=DONNIE Swan, Yamila STERN=DO Ro Joseph WMAXX=DONNIE [place], Shea &a-1R&a+25V*p+0X*b0532H*c202B*c15G*c2P*p-0X&a-25V&a+1R Name: Mary Mcginnis : 1990 F26 MedRec: [id number] AcctNum: [id number] Prepared: Bear Mar 07, 2016 19:50 by Interface Page 13 of 13 pMD MTDD
== END 2016-03-07 19:23 | disposition home or self-care (01) ==
LOC: BURERS 17:14
DX: J06.9 Acute upper respiratory infection, unspecified (principal); N39.0 Urinary tract infection, site not specified; L02.412 Cutaneous abscess of left axilla; E87.6 Hypokalemia
CPT/HCPCS: 80053; 80306; 81003; 81015; 83690; 84703; 85025; 87086; 96365; 96367; 96375; J0696; J2405